=== PATIENT | male | born 1980 | race Caucasian/White ===

== ENCOUNTER 2021-11-18 19:51 | Inpatient (IN) | payer MEDICAID ==
[~2021-11-18] VITALS: Ht 165.1 cm; Wt 72.6 kg
--- NOTE | 2021-11-18 20:50 | NUR ---
TO ER BED 11. GILA C/O ETOH FROM STREET. CONNECTED TO MONITOR . NOT IN RESPIRATORY DISTRESS. CHOKING PRECAUTIONS IN PLACE. SITTER WITHIN SIGHT. AWAITING MD TORRES
[2021-11-18] MEDS ORDERED: IV NS 0.9% 1,000 ML BAG IV ONE ×2 (21:00→23:00)
[2021-11-18] MEDS ORDERED: PANTOPRAZOLE 40 MG VIAL IV ONE (21:00)
[2021-11-18] MEDS ORDERED: PANTOPRAZOLE 40 MG VIAL ONE (21:20)
--- NOTE | 2021-11-18 22:07 | NUR ---
LAB CALLED FOR RESULT: LACTIC ACID 3.2
[2021-11-18 22:19] LABS: CALCIUM, SERUM 8.2 mg/dL (8.5-10.1); CARBON DIOXIDE 27 mmol/L (21-32); CHLORIDE 99 mmol/L (98-107); CREATININE 0.7 mg/dL (0.6-1.3); GLUCOSE 127 mg/dL (74-106); POTASSIUM 3.9 mmol/L (3.5-5.1); SODIUM SERUM 138 mmol/L (136-145); UREA NITROGEN, BLOOD 12 mg/dL (7-18)
[2021-11-18 22:25] LABS: ALANINE AMINOTRANSFERASE 187 U/L (12-78); ALBUMIN 3.6 g/dL (3.4-5.0); ALKALINE PHOSPHATASE 126 U/L (46-116); ASPARTATE AMINOTRANSFERASE 260 U/L (15-37); BILIRUBIN,DIRECT 0.1 mg/dL (0.0-0.2); BILIRUBIN,TOTAL 0.3 mg/dL (0.2-1.0); LIPASE 232 U/L (73-393); TOTAL PROTEIN, SERUM 7.4 g/dL (6.4-8.2)
[2021-11-18 22:27] LABS: BASOPHILS % (AUTO) 0.6 % (0.0-2.0); EOSINOPHILS % (AUTO) 0.9 % (0.0-6.0); HEMATOCRIT 45 % (39-51); HEMOGLOBIN 15.6 g/dL (13.5-17.5); LYMPHOCYTES # (AUTO) 1.9 K/uL (0.8-4.8); LYMPHOCYTES % (AUTO) 37.8 % (20.0-44.0); MEAN CORPUSCULAR HGB CONC 35 g/dl (31.0-36.0); MEAN CORPUSCULAR VOLUME 85 fL (80-96); MONOCYTES # (AUTO) 0.3 K/uL (0.1-1.30); MONOCYTES % (AUTO) 5.3 % (2.0-12.0); NEUTROPHILS # (AUTO) 2.8 K/uL (1.8-8.9); NEUTROPHILS % (AUTO) 55.4 % (43.0-81.0); PLATELET COUNT (AUTO) 234 K/uL (150-450); RED BLOOD CELL COUNT(AUTO) 5.25 MIL/uL (4.5-6.0); WHITE BLOOD COUNT (AUTO) 5.1 K/uL (4.3-11.0)
--- NOTE | 2021-11-18 22:32 | NUR ---
URINE COLLECTED AND SENT TO LAB
[2021-11-18 22:45] LABS: CREATINE KINASE, TOTAL 225 U/L (39-308)
--- NOTE | 2021-11-18 22:45 | NUR ---
COVID ANTIGEN SWAB COLLECTED AND SENT TO LAB
[2021-11-18 22:55] LABS: ALCOHOL, BLOOD 507 mg/dL (0-0)
[2021-11-18 23:21] LABS: BILIRUBIN,URINE NEGATIVE (NEGATIVE); COLOR,URINE YELLOW (YELLOW); LEUKOCYTE ESTERASE ,URINE NEGATIVE (NEGATIVE); NITRITE, URINE NEGATIVE (NEGATIVE); PROTEIN,URINE NEGATIVE (NEGATIVE); UGLUCOSE NEGATIVE (NEGATIVE); UROBILINOGEN,URINE 0.2 EU/dL (0.2)
[2021-11-18] MEDS ORDERED: ACETAMINOPHEN 325 MG TABLET PO PRN (23:30)
[2021-11-18] MEDS ORDERED: MAG HYDROX/AL HYDROX/SIMETH 30 ML UDC PO PRN (23:30)
[2021-11-18] MEDS ORDERED: ONDANSETRON HCL/PF 4 MG/2 ML VIAL IVP PRN (23:30)
[2021-11-18] MEDS ORDERED: Z GUARD REMEDY 4 OZ OINT TP PRN (23:30)
[2021-11-18] MEDS ORDERED: LORAZEPAM INJ 2 MG/ML VIAL IV PRN (23:30)
[2021-11-18] MEDS ORDERED: MAGNESIUM HYDROXIDE 30 ML UDC PO PRN (23:30)
[2021-11-18] MEDS ORDERED: ZOLPIDEM TARTRATE 5 MG TABLET PO PRN (23:30)
--- NOTE | 2021-11-18 23:51 | NUR ---
XRAY AT BEDSIDE
--- NOTE | 2021-11-19 01:08 | NUR ---
PT IS ASLEEP , DROWSY UPON WAKENING. CHOKING PRECAUTIONS STILL IN PLACE. WILL CONTINUE TO MONITOR.
--- NOTE | 2021-11-19 02:45 | NUR ---
PROVIDED PT WITH URINAL. WILL CONT TO MONITOR
[2021-11-19 04:51] LABS: BASOPHILS % (AUTO) 0.5 % (0.0-2.0); EOSINOPHILS % (AUTO) 0.1 % (0.0-6.0); HEMATOCRIT 42 % (39-51); HEMOGLOBIN 14.2 g/dL (13.5-17.5); LYMPHOCYTES % (AUTO) 27.5 % (20.0-44.0); MEAN CORPUSCULAR HGB CONC 34 g/dl (31.0-36.0); MEAN CORPUSCULAR VOLUME 86 fL (80-96); MONOCYTES # (AUTO) 0.2 K/uL (0.1-1.30); MONOCYTES % (AUTO) 4.4 % (2.0-12.0); NEUTROPHILS # (AUTO) 2.4 K/uL (1.8-8.9); NEUTROPHILS % (AUTO) 67.5 % (43.0-81.0); PLATELET COUNT (AUTO) 177 K/uL (150-450); WHITE BLOOD COUNT (AUTO) 3.6 K/uL (4.3-11.0)
[2021-11-19 05:10] LABS: CALCIUM, SERUM 7.1 mg/dL (8.5-10.1); CREATININE 0.6 mg/dL (0.6-1.3); MAGNESIUM 2.3 mg/dL (1.8-2.4); PHOSPHORUS 4.8 mg/dL (2.5-4.9); POTASSIUM 3.6 mmol/L (3.5-5.1)
--- NOTE | 2021-11-19 06:23 | NUR ---
PT STILL ASLEEP, CONNECTED TO MONITOR.
--- NOTE | 2021-11-19 07:15 | NUR ---
Recived pt from january rn pt asleepy respiration spont and easy no distress wating for telmetrey bed
[2021-11-19] MEDS ORDERED: PANTOPRAZOLE 40 MG TABLET.DR PO ONE (07:47)
[2021-11-19 07:48] LABS: BACTERIA,URINE None seen /HPF (None Seen); RBC,URINE 0-2 /HPF (0-2); SQUAMOUS EPITHELIAL CELL,UR None Seen /HPF (None Seen); WBC,URINE 0-1 /HPF (0-3)
[2021-11-19] MEDS ORDERED: THIAMINE HCL 100 MG TABLET ONE (07:48)
[2021-11-19] MEDS: PANTOPRAZOLE 40 MG TABLET.DR PO SCH (07:50)
[2021-11-19] MEDS: THIAMINE HCL 100 MG TABLET PO SCH (07:54)
--- NOTE | 2021-11-19 08:36 | NUR ---
resting wating for room
--- NOTE | 2021-11-19 09:00 | NUR ---
incontine of urin clean pt done keep him clean and dry pt more alert anf fallow command
--- NOTE | 2021-11-19 09:35 | NUR ---
pt MORE AWAKE AND ALERT FALLOW COMMAND
--- NOTE | 2021-11-19 10:05 | NUR ---
SS Consult requested for alcohol abuse. The pt. is a 41-year-old male who was [facility] ED for possible alcohol abuse. Per EMR, pt. will be admitted to the medical floor for: Altered level of consciousness, Alcohol intoxication, Dehydration, Sinus tachycardia, Elevated lactic acid level, Transaminitis, Elevated alkaline phosphatase level per MD note. SW met with pt. at bedside and conducted interview in Omani as pt. is Omani speaking only. The pt. appears disheveled, is A&O X3 and makes avoidant eye contact. Pt.s has depressed mood & flat affect. The pt. states he has difficulty walking as pt. has weakness. Patient tested positive for alcohol use. dyehouse worker provided support with motivational interviewing, education regarding alcohol dependence, brief intervention and offered referral to treatment. Pt. declined referral for rehab and refused addiction resources. Pt. denies any use of drugs. SW explored pt.s living situation. Pt. states he shares an apartment and could not remember address. However, pt. he has been binge drinking for the past 2 weeks. MELISSA explored pt.s mental health Hx. Pt. denies any mental health diagnosis but states he has struggled with symptoms of depression. Pt. stated he has current visual and auditory hallucinations that tell him to hurt himself. SW assessed for suicidality and pt. States he does have thoughts of suicide with plan to cut his wrist of jump off a bridge. SW provided emotional support and offered referral for psych hospitalization on a voluntary basis and pt. refused. Pt. states he is independent with his of ADLs at this time. MELISSA explored pt.s support system. Pt. states he has a sister that lives in the area but cannot remember her name. Plan: Pt. will be admitted to med floors. Pt. to be reassessed for SI once sober and if suicidality is present after medical clearance. Crisis Clinicians should be called to clear patient. Pt. refused voluntary admission to a psych hospital. MELISSA discussed with Marquis RENTERIA. MELISSA provided mental health, addiction and pt. accepted. Pt. states he should be able to return to his apartment. Pt. could not remember address. ADDICTION RESOURCES For Drugs and Alcohol [facility]stance Abuse [facility]pl[facility] Outpatient treatment, residential treatment, recovery support for youth and adults [facility] www.Intra-Cellular TherapiesounsMobileReactor [facility] Teen programs for drug/alcohol education and support Paulette Taylor [place]. Program for adults, sliding scale provides support and education [employer] www.NEST Fragrances.Aniboom Kopperl; Outpatient/residential treatment programs; transition to sober living [facility] www.cri-help.org [place]; Outpatient and residential treatment programs; transition to sober living [facility] [place] [facility] Juliann Ricardo; Outpatient education and supportive programs for teens and adults [facility] www.[facility].org [place]; Residential treatment and work program for females only [facility] www.[facility].Aniboom [place]: Outpatient/residential treatment program for teens and young adults [facility] www.[facility].org Tarza Detox, inpatient, outpatient for adults and youth [facility], [facility]. [place]; Outpatient programs and referrals to community residential programs. Alcoholics Anonymous -SFV information and meeting and schedules www.aa-intergroup.org As-Ccgi-Kbscbuo https://al-anon.org/ [place] support groups for family of alcoholics. Marijuana Anonymous www.madistrict6.org -SFV listing of meetings Narcotics Anonymous www.na.org SOBER LIVING RESOURCES [facility] www.soberhousing.net A non-profit agency that provides resources to recovery and sober living homes throughout [facility] Sober Living Homes: A Work in ProgressCatalina [facility] [place] [facility], [place] [facility] Sober Living Homes: [facility] [phone], [place] [facility] Sober Living Homes: [facility] Counsel[facility]--Outpatient [facility] [address] [facility] [place] [address] (Specializes in in-depth psychotherapy for emotional distress: anxiety, depression, interpersonal conflicts, life transitions, childhood abuse) [facility] [address] [place] [address] (Assist with solving problem marital difficulties, separation & divorce, aging parents, & grief, chronic & terminal illness) [facility] [address] [place] [address] (Deal with loss & grief, anxiety, marital difficulties) Homebound/Mental Health Services [address] [facility], [address] [place] [address] (Provide in-home mental services to people who are incapable of leaving their homes) Organization for Needs of the Elderly Senior Service/Resource Center [address] [place] [address] [facility] [address] [place] [address] Mental Health Services [facility] [address] [place] [address] Services: Outpatient therapy for children, teens, young adults, adults, older adults, and families; Psychiatric services, medication support Psychiatric Outpatient Services [facility] Partial Hospitalization and Intensive Outpatient Program (Managed Care and [place] Only)[address] [facility] [phone] [facility] Partial Hospitalization and Outpatient [id number] [facility] [address] [place], [place] [phone] [facility] Partial Hospitalization and Outpatient [id number] [place] [address] [facility] [place], [place] [phone] JULIANN LEONIE [facility] [id number] [facility]. [address] [facility], [place] [phone] [facility] Partial Hospitalization and Outpatient [id number] Jeremy [facility] Juliann Ricardo, [phone] Crisis and Hotline Telephone Numbers 24-Hour service unless stated Mcdavid Crisis Hotlines: [facility] Mental Health/Crisis Line........687.996.8019 Suicide Prevention Center (24 Hours).......224.570.2828 Suicide Prevention Crisis Center.......237.551.4973 (24 Hours) Assaults Against Women Hotline.........809.625.3915 (24 Hours -- [facility]) Women and Children Crisis Fci...........[phone] (24 Hours) Child Abuse Hotline............888.126.9255 [facility] (24 Hours)..........210.403.1397 Alcoholics Anonymous (24 Hours)..........637.818.8861 Cocaine Anonymous (24 Hours)............617.981.9768 Narcotics Anonymous (24 Hours)..........253.241.1964 [address] [address] [facility] [address], [place] [address]
--- NOTE | 2021-11-19 10:05 | NUR ---
room 312-2
--- NOTE | 2021-11-19 10:34 | NUR ---
HAND OFF TO CARLOS RN TO ROOM 312-2 stable vs and condition
--- NOTE | 2021-11-19 11:10 | NUR ---
Patient arrived via gurney from ER department at around 11:10am. Patient alert, oriented X 1-2, noted to have poor concentration, needed to repeat questions during interview, able to follow very simple commands, can make needs known, no behaviors at this time, no suicidal ideation, no suicidal plan, denies feeling sad or depressed. Vital signs within normal limits, respirations even and unlabored, afebrile, no chest pain, no dizziness, no palpitations. Admitting hospitalist made aware of the patient's arrival. Patient admitting diagnosis alcohol intoxication with acute encephalopathy. Patient oriented with use of call lights, use of bed control, use of telephone and tv control, also introduces METAL SANDER AND FINISHER and RN assigned for today and needed further instructions. All belongings written in the inventory list, money wallet and keys was placed in safe in the nursing office. All needs attended, kept clean and dry, call light left within reach, safety precautions in place, brakes locked, side rails up X 2.
[2021-11-19] MEDS: IV NS 0.9% 1,000 ML IV PRN ×2 (11:51→18:55)
[2021-11-19 12:00] VITALS: BP 129/97
[2021-11-19 16:00] VITALS: BP 135/88
--- NOTE | 2021-11-19 18:44 | NUR ---
RN CLOSING NOTES Patient lying in bed, no shortness of breath, respirations even and unlabored, no dizziness, no palpitations, no chest pain, denies any pain or discomfort, no grimacing, no verbalization of sadness, no anxiety, patient compliant with care at this time, denies having any hallucination, no suicidal ideation or thoughts. Patient stated "I feel a little bit better compared this morning, thank you for taking care of me and giving me food". Patient has peripheral IV line on right antecubital and left antecubital, intact, patent and flushing well, site covered with clean, intact and dry dressings and no swelling, no redness, no c/o pain or discomfort at site patient also has an order for IV fluids for hydration (0.9NS at 150ml/hr), tolerating well. Kept clean and dry, call light left within reach, all needs attended, aspiration precautions observed at all times, kept head of bed elevated, safety precautions in place, frequent visual checks rendered, brakes locked, side rails up X 2.
--- NOTE | 2021-11-19 19:30 | NUR ---
RN OPENING NOTES RECEIVED PT IN BED, AWAKE. AOx2-3. ON RA AND TOLERATING WELL. NO SOB NOTED. NO S/SX OF RESPIRATORY DISTRESS NOTED. TELE MONITOR DETECTS NSR WITH RATE OF 86. IV ACCESS IN RAC #18G AND LAC #18G RUNNING NS @ 150 ML/HR. SAFETY PRECAUTIONS IN PLACE: BED IN LOWEST, LOCKED POSITION, SIDERAILS UPx2, AND BRAKES ON. TABLE AND CALL LIGHT WITHIN REACH. SITTER ALSO AT BEDSIDE. WILL CONTINUE TO MONITOR.
[2021-11-19 20:00] VITALS: BP 130/71
[2021-11-20] VITALS: BP 139/81
[2021-11-20] MEDS: IV NS 0.9% 1,000 ML IV PRN ×3 (00:48→13:46)
[2021-11-20 04:00] VITALS: BP 123/20
--- NOTE | 2021-11-20 06:53 | NUR ---
RN CLOSING NOTES PT IN BED, AWAKE. AOx2-3. ON RA AND TOLERATING WELL. NO SOB NOTED. NO S/SX OF RESPIRATORY DISTRESS NOTED. TELE MONITOR DETECTS NSR WITH RATE OF 86. IV ACCESS IN RAC #18G AND LAC #18G RUNNING NS @ 150 ML/HR. ALL NEEDS MET. ALL ORDERS CARRIED OUT. PT KEPT CLEAN AND DRY. SAFETY PRECAUTIONS IN PLACE: BED IN LOWEST, LOCKED POSITION, SIDERAILS UPx2, AND BRAKES ON. TABLE AND CALL LIGHT WITHIN REACH. SITTER ALSO AT BEDSIDE. WILL ENDORSE TO ONCOMING SHIFT FOR DANIEL.
[2021-11-20 07:07] LABS: BASOPHILS % (AUTO) 0.2 % (0.0-2.0); EOSINOPHILS % (AUTO) 1.1 % (0.0-6.0); HEMATOCRIT 40 % (39-51); HEMOGLOBIN 13.8 g/dL (13.5-17.5); LYMPHOCYTES # (AUTO) 0.9 K/uL (0.8-4.8); LYMPHOCYTES % (AUTO) 17.8 % (20.0-44.0); MEAN CORPUSCULAR HGB CONC 34 g/dl (31.0-36.0); MEAN CORPUSCULAR VOLUME 86 fL (80-96); MONOCYTES # (AUTO) 0.4 K/uL (0.1-1.30); MONOCYTES % (AUTO) 7.6 % (2.0-12.0); NEUTROPHILS # (AUTO) 3.7 K/uL (1.8-8.9); NEUTROPHILS % (AUTO) 73.3 % (43.0-81.0); PLATELET COUNT (AUTO) 169 K/uL (150-450); RED BLOOD CELL COUNT(AUTO) 4.66 MIL/uL (4.5-6.0)
[2021-11-20 07:42] LABS: CALCIUM, SERUM 8.1 mg/dL (8.5-10.1); CREATININE 0.6 mg/dL (0.6-1.3); PHOSPHORUS 3.6 mg/dL (2.5-4.9); POTASSIUM 3.4 mmol/L (3.5-5.1)
--- NOTE | 2021-11-20 07:53 | NUR ---
TILE PROFESSIONAL OPENING NOTE Patient in bed, awake. A/O x 2-3, able to make needs known. On room air, breathing evenly and unlabored. No SOB or s/s of distress noted. IV access on RAC #18 SL, intact and patent and LAC #18 running NS at 125 ml/hr. Safety precautions in place: bed in low, locked position; siderails up x 2; call light within reach. Will continue to monitor. Addendum: 11/20/21 at 0756 by LILO PALMER RN ADD: On tele monitoring showing SR, HR on the 80's.
[2021-11-20 08:00] VITALS: BP 130/85
[2021-11-20] MEDS: PANTOPRAZOLE 40 MG TABLET.DR PO SCH (08:15)
[2021-11-20] MEDS: THIAMINE HCL 100 MG TABLET PO SCH (08:15)
[2021-11-20] MEDS ORDERED: POTASSIUM CHLORIDE 20 MEQ TAB.PRT.SR PO SCH (10:00)
[2021-11-20 12:00] VITALS: BP 123/86
--- NOTE | 2021-11-20 14:48 | NUR ---
RN NOTE Assessed patient for SI; ARGENTINA Olivera translated, patient denies any suicidal ideation. Patient stated that he was probably just drunk that's why he said that he wanted to hurt himself. As per Jarod, who translated for patient, patient has no plans of hurting himself in any way. Addendum: 11/20/21 at 1659 by LILO PALMER RN ADD: Dr. Avila Marroquin cleared patient for discharge.
[2021-11-20 16:00] VITALS: BP 151/90
--- NOTE | 2021-11-20 19:44 | NUR ---
EXECUTOR OF ESTATE CLOSING NOTE Patient in bed, awake. A/O x 2-3, able to make needs known. Stable on room air, breathing evenly and unlabored. No SOB or s/s of distress noted. IV access on RAC #18 SL, intact and patent and LAC #18 running NS at 125 ml/hr. due meds given. All needs attended to. Safety precautions maintained: bed in low, locked position; siderails up x 2; call light within reach. Will endorse to manager shift nurse for DANIEL.
--- NOTE | 2021-11-20 20:53 | NUR ---
RN NOTES DISCHARGED PATIENT TO LOCATION OF CHOICE, PATIENT IS HOMELESS, SIGNED HOMELESS WAIVER FORM, GIVEN CLEAN SET OF CLOTHES, ALL BELONGINGS GIVEN, DISCHARGE PAPERS GIVEN. INFORMATION GIVEN IN OCCITAN, PATIENT VERBALIZED UNDERSTANDING. VS STABLE, STEADY GAIT, ALERT/ORIENTED X4, NO DISTRESS.
[2021-11-20 20:55] VITALS: BP 137/94
== END 2021-11-20 20:50 | disposition home or self-care (01) | DRG 775 ==
LOC: ER 19:55 → TRANSITION 11-19 06:37 → TELE 11-19 10:37
PROVIDERS: ADMIT Nurse Practitioner Acute Care; ATTEND Nurse Practitioner Acute Care
DX: F10.129 Alcohol abuse with intoxication, unspecified (principal); G93.41 Metabolic encephalopathy; E86.0 Dehydration; Y90.8 Blood alcohol level of 240 mg/100 ml or more; Z59.00 Homelessness unspecified; F15.10 Other stimulant abuse, uncomplicated; Z20.822 Contact with and (suspected) exposure to COVID-19; E87.2 Acidosis; R27.0 Ataxia, unspecified; R74.01 Elevation of levels of liver transaminase levels
CPT/HCPCS: 36415; 70450-TC; 71045-TC; 72125-TC; 80048-TC; 80076-TC; 81001; 82550-TC; 83605-TC; 83690-TC; 83735-TC; 83880; 84100-TC; 84484-TC; 85025-TC; 87040-TC; 87081-TC; C9113; C9803; G0378; G0480; J2060; J2405; J7030; J7040